=== PATIENT | female | born 2000 | race Caucasian/White ===

== ENCOUNTER 2018-04-14 16:49 | Emergency (ER) | payer OTHER ==
[2018-04-14 17:05] VITALS: BMI 30.5
[2018-04-14] MEDS ORDERED: ONDANSETRON *ODT* 4 MG TABLET SL ONE (18:12)
[2018-04-14] MEDS ORDERED: ALBUTEROL SO4 2.5/IPRATROPIUM 0.5 INH SOL 3 ML VIAL.NEB. NEB ONE ×2 (18:12→18:19)
[2018-04-14] MEDS ORDERED: ACETAMINOPHEN 325 MG TABLET (FP) PO ONE (18:12)
--- NOTE | 2018-04-14 18:13 | PDOC ---
*Physical Exam - Vital Signs Last Vital Signs Temp Pulse Resp BP Pulse Ox 99.4 F 107 H 19 125/81 98 04/14/18 17:03 04/14/18 17:03 04/14/18 17:03 04/14/18 17:03 04/14/18 17:03 ED Treatment Course - ADDITIONAL ORDERS Additional order review: Laboratory Results 04/14/18 17:18 Urine HCG, Qual Negative 04/14/18 17:18 Group A Strep Rapid Antigen - Final Throat Medical Decision Making - Medical Decision Making 04/14/18 18:13 Pt seen by the Advanced Practice Provider under my direct supervision Ancillary studies reviewed I agree with plan as outlined by the Advanced Practice Provider REJI Rodriguez *DC/Admit/Observation/Transfer - Referrals Referrals: Thanh Almonte MD [Primary Care Provider] - - Patient Instructions - Post Discharge Activity
[2018-04-14] MEDS ORDERED: ACETAMINOPHEN 325 MG TABLET (FP) ONE (18:19)
[2018-04-14] MEDS ORDERED: ONDANSETRON *ODT* 4 MG TABLET ONE (18:19)
--- NOTE | 2018-04-14 18:29 | PDOC ---
History of Present Illness - General Chief Complaint: Nausea/Vomiting Stated Complaint: PAIN Time Seen by Provider: 04/14/18 17:02 History Source: Patient Exam Limitations: No Limitations - History of Present Illness Initial Comments: CHIEF COMPLAINT: 17 y/o female with PMH asthma c/o 4 days of fever, chills and URI symptoms. HISTORY OF PRESENT ILLNESS: The patient states she has been fasting. Her parents were both sick with bronchitis and they have been taking care of her. She states 4 days ago she started with sinus pressure, runny nose, nasal congestion, dry cough, sore throat and periods of sweating and then shivering. She never took a temp at home. She states yesterday she began vomiting. She has not taken any medication nor drain any fluids during the day because she's been fasting. She took advil cold and sinus last night, along with her albuterol inhaler and flonase with little relief. Her mom informed her she can break her fast because she is sick so she came here. She denies neck pain CP, abd pain, diarrhea, constipation, hematuria, dysuria. Patient had tonsils and adenoids removed. She is able to drink liquids and eat without vomiting. Vital signs on arrival are notable for pulse of 107 and temp of 99.4. REVIEW OF SYSTEMS: GENERAL/CONSTITUTIONAL: Subjective fever/chills. No weakness. No weight change. HEAD, EYES, EARS, NOSE AND THROAT: No change in vision. +earache. +sore throat. +watery, itchy eyes. +nasal congestion and runny nose. CARDIOVASCULAR: No chest pain or shortness of breath. RESPIRATORY: +dry cough. No wheezing or hemoptysis. GASTROINTESTINAL: See history of present illness. GENITOURINARY: +vomiting yesterday. No diarrhea, constipation or abd pain. MUSCULOSKELETAL: No joint or muscle swelling or pain. No neck or back pain. SKIN: No rash or easy bruising. NEUROLOGIC: No headache, vertigo, loss of consciousness, or loss of sensation. PHYSICAL EXAM: GENERAL: The patient is awake, alert, and fully oriented, in no acute distress. She is non toxic but ill appearing. HEAD: Normal with no signs of trauma. Pain with palpation of frontal and maxillary sinuses . ENT: Pupils equal, round and reactive to light, extraocular movements intact, sclera anicteric, conjunctiva clear. Nasal congestion. Inflammed nasal turbinates b/l. Erythematous posterior pharynx and tonsils. LUNGS: Faint wheezing in lower posterior field. Normal excursion. No respiratory distress or use of accessory muscles. CV: RRR, S1/S2, no MRG. Cap refill < 2 sec. ABDOMEN: Soft, non-distended, non-tender even to deep palpation, no hepatomegaly or splenomegaly, no masses. EXTREMITIES: Normal range of motion, no edema. NEUROLOGICAL: Normal speech, normal gait. CN II-XII grossly intact. SKIN: Warm, dry, normal turgor, no rashes or lesions noted. Past History - Past Medical History Allergies/Adverse Reactions: Allergies Allergy/AdvReac Type Severity Reaction Status Date / Time No Known Allergies Allergy Verified 04/14/18 17:02 Home Medications: Ambulatory Orders Albuterol 0.083% Nebulizer Carley [Ventolin 0.083%] 1 neb NEB Q4H PRN 04/14/18 Amoxicillin/Potassium Clav [Augmentin 875-125 Tablet] 1 each PO BID #14 tablet 04/14/18 Asthma: Yes COPD: No - Suicide/Smoking/Psychosocial Hx Smoking History: Never smoked Have you smoked in the past 12 months: No Number of Cigarettes Smoked Daily: 0 Hx Alcohol Use: No Drug/Substance Use Hx: No *Physical Exam - Vital Signs Last Vital Signs Temp Pulse Resp BP Pulse Ox 99.4 F 107 H 19 125/81 98 04/14/18 17:03 04/14/18 17:03 04/14/18 17:03 04/14/18 17:03 04/14/18 17:03 ED Treatment Course - ADDITIONAL ORDERS Additional order review: Laboratory Results 04/14/18 17:18 Urine HCG, Qual Negative 04/14/18 17:18 Group A Strep Rapid Antigen - Final Throat Medical Decision Making - Medical Decision Making A/p: 17 y/o female with sinus infection. Patient is tachycardic most likely because she has been fasting, has had a fever and hasn't taken any antipyretics. Will treat as follows: 1. sl zofran 2. duoneb 3. tylenol Will discharge to home with rx for augmentin. Suggested she drink plenty of fluids and get lots of rest. Instructed her to continue to use her albuterol inhaler, tylenol or motrin for fever and OTC nasal spray Instructed her to f/u with her PCP within 1 week and return to the ER with any worsening or concerning symptoms. The patient verbalizes understanding of all instructions, has no further questions and is awaiting discharge. *DC/Admit/Observation/Transfer Diagnosis at time of Disposition: Sinus infection Qualifiers: Sinusitis location: frontal Chronicity: acute Recurrence: non-recurrent Qualified Code(s): J01.10 - Acute frontal sinusitis, unspecified - Discharge Dispostion Disposition: HOME Condition at time of disposition: Improved - Prescriptions Prescriptions: Amoxicillin/Potassium Clav [Augmentin 875-125 Tablet] 1 each PO BID #14 tablet - Referrals Referrals: Thanh Almonte MD [Primary Care Provider] - Call tomorrow - Patient Instructions Printed Discharge Instructions: DI for Sinusitis Additional Instructions: Discharge Instructions: -You have a sinus infection -A prescription for an antibiotic has been sent to your pharmacy; please take for entire 7 days -Please take 650mg of tylenol every 4 hours OR 600mg of ibuprofen every 6 hours for fever and headache -Continue taking nasal spray -Drink at least 64oz of water daily -Follow up with your doctor within 1 week -Return to the ER with any worsening or concerning symptoms - Post Discharge Activity Forms/Work/School Notes: Back to Work
[2018-04-14 19:25] VITALS: BP 114/59; PULSE 73; TEMP 98.1
--- NOTE | 2018-04-14 20:08 | PDOC ---
Rapid Medical Evaluation Chief Complaint: Nausea/Vomiting Time Seen by Provider: 04/14/18 17:02 Medical Evaluation: Allergies Allergy/AdvReac Type Severity Reaction Status Date / Time No Known Allergies Allergy Verified 04/14/18 17:02 Vital Signs Temp Pulse Resp BP Pulse Ox 99.4 F 107 H 19 125/81 98 04/14/18 17:03 04/14/18 17:03 04/14/18 17:03 04/14/18 17:03 04/14/18 17:03 Discharge Disposition - Referrals Referrals: Thanh Almonte MD [Primary Care Provider] - - Patient Instructions - Post Discharge Activity
== END 2018-04-14 19:25 | disposition home or self-care (01) ==
LOC: JER 16:49
PROC: 3E0F7GC Introduction of Other Therapeutic Substance into Respiratory Tract, Via Natural or Artificial Opening (ICD-10-PCS; principal; 2018-04-14)
DX: J01.10 Acute frontal sinusitis, unspecified (principal); J45.909 Unspecified asthma, uncomplicated
CPT/HCPCS: 84703; 87070; 87430; 94640; 99283-25; J7620; Q0162

== ENCOUNTER 2018-05-05 17:52 | Emergency (ER) | payer OTHER ==
[2018-05-05 18:14] VITALS: BP 110/59; PULSE 88; TEMP 98.3; BMI 29.7
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
[2018-05-05] MEDS ORDERED: KETOROLAC TROMETHAMINE 60 MG/2 ML VIAL IM ONE (18:53)
[2018-05-05] MEDS ORDERED: KETOROLAC TROMETHAMINE 60 MG/2 ML VIAL ONE (19:14)
[2018-05-05] MEDS ORDERED: CYCLOBENZAPRINE HCL 10 MG TABLET (FP) ONE (19:16)
[2018-05-05] MEDS ORDERED: CYCLOBENZAPRINE HCL 10 MG TABLET (FP) PO ONE (19:29)
[2018-05-05 20:11] LABS: HCG,QUALITATIVE URINE NEGATIVE; URINE APPEARANCE CLEAR; URINE BILIRUBIN NEGATIVE (<2.0 mg/dL); URINE COLOR YELLOW; URINE GLUCOSE (UA) NEGATIVE (NEGATIVE); URINE KETONE NEGATIVE (NEGATIVE); URINE LEUK ESTERASE NEGATIVE (NEGATIVE); URINE NITRITE NEGATIVE (NEGATIVE); URINE PROTEIN NEGATIVE (NEGATIVE)
== END 2018-05-05 19:29 | disposition home or self-care (01) ==
LOC: JERFT 17:52
PROC: 3E0233Z Introduction of Anti-inflammatory into Muscle, Percutaneous Approach (ICD-10-PCS; principal; 2018-05-05)
DX: S13.4XXA Sprain of ligaments of cervical spine, initial encounter (principal); V49.59XA Passenger injured in collision with other motor vehicles in traffic accident, initial encounter; Y92.414 Local residential or business street as the place of occurrence of the external cause; Y93.89 Activity, other specified; Y99.8 Other external cause status
CPT/HCPCS: 81003; 84703; 99281-25

== ENCOUNTER 2018-10-23 10:25 | Emergency (ER) | payer OTHER ==
[2018-10-23 10:40] VITALS: BMI 31.6
--- NOTE | 2018-10-23 11:26 | PDOC ---
History of Present Illness - General Chief Complaint: Pain, Acute Stated Complaint: ABD PAIN Time Seen by Provider: 10/23/18 11:26 History Source: Patient Exam Limitations: No Limitations - History of Present Illness Initial Comments: 10/23/18 12:14 Bin 18 YOF with h/o scoliosis, asthma and GERD presenting with suprapubic pain x 1 month, worse last night. She states last night, she had sudden onset of sharp pelvic pain, radiating to both sides. +urinary burning, vaginal discharge of yellow-white mucus LMP 2 weeks ago, regular. Denies sexual activity, virgin. No f/c, cp, sob. No vomiting or diarrhea, flank pain, leg pain or swelling. No smoking drugs or alcohol +stressors including her final exams. ROS Constitutional: no fevers or chills. HEENT: no headache or dizziness. No congestion. No visual/hearing disturbances. CVS: no cp or syncope. Resp: no sob. No cough. Abdomen: +abdominal pain, nausea. No vomiting or diarrhea Genitourinary: no hematuria. No frequency or urgency. +vaginal discharge and dysuria. MUSCULOSKELETAL: No joint pain and swelling. No neck or back pain. SKIN: no redness or skin changes, no discharge, no rash. No wounds. Hematologic: no easy bruising/bleeding. NEUROLOGIC: No headache, dizziness, LOC or altered mental status. No weakness, numbness or tingling. All other systems reviewed and negative, or as documented in HPI. Physical Exam: General: Well appearing, awake and alert, NAD. HEENT: NCAT, PERRL, EOMI, clear conjunctiva, anicteric, moist mucus membranes, clear oropharynx, no oral lesions.. Neck: neck supple, FROM Resp: CTAB, normal and even respirations, no respiratory distress CVS: RRR, no murmurs, 2+ peripheral pulses throughout, no peripheral edema Abdomen: soft, nondistended. +suprapubic TTP, no rebound or guarding. No CVAT. Back: nontender, normal inspection and ROM MSK: no edema, GARAY x4, ROM intact. No clubbing or cyanosis. normal bulk and tone. Extremities: no calf tenderness Neuro: alert, oriented appropriately; no focal neurologic deficits Skin: warm and well perfused, cap refill <2 sec, normal color 10/23/18 13:07 Past History - Past Medical History Allergies/Adverse Reactions: Allergies Allergy/AdvReac Type Severity Reaction Status Date / Time No Known Allergies Allergy Verified 05/05/18 18:09 Home Medications: Ambulatory Orders Cyclobenzaprine HCl 10 mg PO Q8H PRN #14 tablet 05/05/18 Asthma: Yes COPD: No DVT: No - Suicide/Smoking/Psychosocial Hx Smoking History: Never smoked Have you smoked in the past 12 months: No Number of Cigarettes Smoked Daily: 0 Hx Alcohol Use: No Drug/Substance Use Hx: No Substance Use Type: None *Physical Exam - Vital Signs Last Vital Signs Temp Pulse Resp BP Pulse Ox 98.2 F 85 16 116/74 98 10/23/18 10:36 10/23/18 10:36 10/23/18 10:36 10/23/18 10:36 10/23/18 10:36 Moderate Sedation - Procedure Monitoring Vital Signs: Procedure Monitoring Vital Signs Temperature 98.2 F 10/23/18 10:36 Pulse Rate 85 10/23/18 10:36 Respiratory Rate 16 10/23/18 10:36 Blood Pressure 116/74 10/23/18 10:36 O2 Sat by Pulse Oximetry (%) 98 10/23/18 10:36 ED Treatment Course - LABORATORY CBC & Chemistry Diagram: 10/23/18 11:55 10/23/18 11:55 Medical Decision Making - Medical Decision Making 10/23/18 13:07 See HPI for details DDx female abdominal pain: ovarian cyst, ovarian torsion, TOA, appy, UTI, pyelonephritis, Mittelschmerz, hormonal imbalance, Vital signs reviewed, wnl. Prior notes reviewed, including admissions, discharges and consultations. laboratory results and imaging reviewed, basic labs and lytes wnl, notable for low blood sugar, but able to tolerate intake, taking food and water. UA_negative for infection or blood. ED course: analgesia, IVF hydration not sexually active, doubt STD. no UTI on UA. not . TVUS: normal, no acute pathology Dispo: I discussed the physical exam findings, ancillary test results and final diagnoses with the patient. I answered all of the patient's questions. The patient was satisfied with the care received and felt comfortable with the discharge plan and treatment plan. The patient will return to the Emergency Department with any new, persistent or worsening symptoms. 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 can take NSAIDS for pain, likely menstrual cycle related. take with food to avoid reflux or upset stomach. 10/23/18 13:58 *DC/Admit/Observation/Transfer Diagnosis at time of Disposition: Pelvic pain - Discharge Dispostion Disposition: HOME Condition at time of disposition: Improved Decision to Admit order: No - Referrals Referrals: Fernie Hartley [Primary Care Provider] - Jessica Myrick MD [Staff Physician] - Zaid Wright MD [Staff Physician] - - Patient Instructions Printed Discharge Instructions: DI for Pelvic Pain Additional Instructions: Your laboratory / imaging results were normal, your urine sample was negative for an infection. Follow up with your physician and consultants as instructed, take your medications as instructed including tylenol/ can take antiinflammatories such as aleve/advil/motrin for pain, likely menstrual cycle related. take with food to avoid reflux or upset stomach. 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 referrals given. this could be menstrual cycle/hormonally related. avoid stressors. stay well hydrated. - Post Discharge Activity
[2018-10-23] MEDS ORDERED: KETOROLAC TROMETHAMINE 15 MG/ML VIAL IVPUSH ONE (12:10)
[2018-10-23] MEDS ORDERED: SODIUM CHLORIDE 0.9% 500 ML INFUS.BAG IV ONE (12:10)
[2018-10-23] MEDS ORDERED: KETOROLAC TROMETHAMINE 15 MG/ML VIAL ONE ×2 (12:24→12:35)
[2018-10-23 12:48] LABS: BASO % 0.8 % (0-2.0); EOS % 3.1 % (0-4.5); HEMATOCRIT 41.5 % (32.4-45.2); HEMOGLOBIN 13.1 GM/dL (10.7-15.3); LYMPH % 33.8 % (8-40); MCH 26.3 pg (25.7-33.7); MCHC 31.6 g/dl (32.0-36.0); MEAN CELL VOLUME 83.3 fl (80-96); MEAN PLT VOLUME 9.1 fl (7.5-11.1); MONO % 8.1 % (3.8-10.2); NEUT % 54.2 % (42.8-82.8); PLATELET COUNT 256 K/MM3 (134-434); RBC 4.98 M/mm3 (3.60-5.2); RDW 13.9 % (11.6-15.6); WHITE BLOOD COUNT 8.2 K/mm3 (4.0-10.0)
[2018-10-23 12:50] LABS: URINE APPEARANCE CLEAR; URINE BILIRUBIN NEGATIVE (<2.0 mg/dL); URINE COLOR LTYELLOW; URINE GLUCOSE (UA) NEGATIVE (NEGATIVE); URINE KETONE NEGATIVE (NEGATIVE); URINE LEUK ESTERASE NEGATIVE (NEGATIVE); URINE NITRITE NEGATIVE (NEGATIVE); URINE PROTEIN NEGATIVE (NEGATIVE); URINE UROBILINOGEN NEGATIVE mg/dL (0.2-1.0)
[2018-10-23 13:28] LABS: ALBUMIN 4.2 g/dl (3.4-5.0); ALK PHOS 110 U/L (45-117); ANION GAP 7 MMOL/L (8-16); BILIRUBIN,TOTAL 0.4 mg/dL (0.2-1); BLOOD UREA NITROGEN 10 mg/dL (7-18); CALCIUM 9.4 mg/dL (8.5-10.1); CHLORIDE 105 mmol/L (98-107); CO2 28 mmol/L (21-32); CREATININE 0.7 mg/dL (0.55-1.3); GLUCOSE,RANDOM 55 mg/dL (74-106); LIPASE 217 U/L (73-393); SGOT/AST 16 U/L (15-37); SGPT/ALT 25 U/L (13-61); SODIUM 139 mmol/L (136-145); TOT PROT 7.8 g/dl (6.4-8.2)
[2018-10-23 14:28] VITALS: BP 112/74; PULSE 74; TEMP 97.8
== END 2018-10-23 14:28 | disposition home or self-care (01) ==
LOC: JER 10:25
PROC: 3E0333Z Introduction of Anti-inflammatory into Peripheral Vein, Percutaneous Approach (ICD-10-PCS; principal; 2018-10-23)
PROC: 3E0337Z Introduction of Electrolytic and Water Balance Substance into Peripheral Vein, Percutaneous Approach (ICD-10-PCS; 2018-10-23)
DX: R10.2 Pelvic and perineal pain (principal)
CPT/HCPCS: 36415; 76856-TC; 80053; 81003; 83690; 84703; 85025; 87086; 96361; 96374; 99282-25

== ENCOUNTER 2021-07-27 04:53 | Emergency (ER) | payer OTHER ==
[2021-07-27 05:21] VITALS: BMI 34.2
[2021-07-27 07:26] LABS: BASO % 0.8 % (0-2.0); EOS % 2.2 % (0-4.5); HEMATOCRIT 38.2 % (32.4-45.2); HEMOGLOBIN 12.8 GM/dL (10.7-15.3); LYMPH % 35.2 % (8-40); MCH 27.3 pg (25.7-33.7); MCHC 33.6 g/dl (32.0-36.0); MEAN CELL VOLUME 81.2 fl (80-96); MEAN PLT VOLUME 9.2 fl (7.5-11.1); MONO % 9.3 % (3.8-10.2); NEUT % 52.5 % (42.8-82.8); PLATELET COUNT 259 10^3/uL (134-434); RDW 13.9 % (11.6-15.6); WHITE BLOOD COUNT 9.8 K/mm3 (4.0-10.0)
[2021-07-27 07:41] LABS: CHLORIDE 109 mmol/L (98-107); SODIUM 142 mmol/L (136-145)
[2021-07-27 07:43] LABS: ALBUMIN 3.4 g/dl (3.4-5.0); ANION GAP 7 MMOL/L (8-16); BLOOD UREA NITROGEN 10.8 mg/dL (7-18); CALCIUM 8.9 mg/dL (8.5-10.1); CO2 26 mmol/L (21-32); GLUCOSE,RANDOM 107 mg/dL (74-106)
[2021-07-27 07:45] LABS: CREATININE 0.6 mg/dL (0.55-1.3); SGOT/AST 11 U/L (15-37); SGPT/ALT 25 U/L (13-61)
[2021-07-27 07:47] LABS: BILIRUBIN,TOTAL 0.3 mg/dL (0.2-1); TOT PROT 6.8 g/dl (6.4-8.2)
[2021-07-27 07:48] LABS: ALK PHOS 92 U/L (45-117)
[2021-07-27 08:45] LABS: URINE APPEARANCE CLEAR; URINE BILIRUBIN NEGATIVE (NEGATIVE); URINE COLOR YELLOW; URINE GLUCOSE (UA) NEGATIVE (NEGATIVE); URINE KETONE NEGATIVE (NEGATIVE); URINE LEUK ESTERASE NEGATIVE (NEGATIVE); URINE NITRITE NEGATIVE (NEGATIVE); URINE PROTEIN NEGATIVE (NEGATIVE); URINE UROBILINOGEN 0.2 mg/dL (0.2-1.0)
[2021-07-27 10:21] VITALS: BP 106/76; PULSE 81; TEMP 98.1
== END 2021-07-27 10:07 | disposition home or self-care (01) ==
LOC: JER 04:53
DX: R09.1 Pleurisy (principal)
CPT/HCPCS: 36415; 71045-TC-FY; 80053; 81003; 82550; 84484; 84703; 85025; 85379; 87086; 93005; 93010; 93970-TC; 99284-25

== ENCOUNTER 2022-06-27 07:16 | Emergency (ER) | payer OTHER ==
[2022-06-27 07:39] VITALS: BP 106/78; PULSE 89; RESP 20; TEMP 97.6; BMI 35.9
[2022-06-27] MEDS ORDERED: CLINDAMYCIN HCL 300 MG CAPSULE PO ONE (08:10)
[2022-06-27] MEDS ORDERED: ACETAMINOPHEN WITH CODEINE 300MG/30MG TABLET PO ONE (08:12)
[2022-06-27] MEDS ORDERED: CLINDAMYCIN HCL 150 MG CAPSULE (FP) ONE (08:25)
[2022-06-27] MEDS ORDERED: ACETAMINOPHEN WITH CODEINE 300MG/30MG TABLET ONE (08:28)
[2022-06-27] MEDS ORDERED: CLINDAMYCIN HCL 150 MG CAPSULE (FP) PO ONE (08:30)
== END 2022-06-27 09:25 | disposition home or self-care (01) ==
LOC: JER 07:16
DX: L03.031 Cellulitis of right toe (principal)
CPT/HCPCS: 99283-25